=== PATIENT | male | born 1955 | race Caucasian/White ===

== ENCOUNTER 2018-03-23 05:43 | Day surgery (SDC) | payer MEDICAID ==
[~2018-03-23] VITALS: Ht 170.2 cm; Wt 53.0 kg
[2018-03-23] MEDS ORDERED: LIDOCAINE 4% 50 ML SOLUTION TP ONE (05:44)
[2018-03-23] MEDS ORDERED: LIDOCAINE 2% 30 ML JELLY TP ONE (05:44)
[2018-03-23] MEDS ORDERED: ALBUTEROL SULFATE 2.5 MG/0.5 ML NEB SOLUTION NEB ONE (05:44)
[2018-03-23] MEDS ORDERED: BENZOCAINE 20% 50 MCG/SPRAY 57 GM TP ONE (05:44)
[2018-03-23] MEDS ORDERED: SODIUM CHLORIDE 0.9% 1,000 ML IV ONE ×2 (06:06→07:00)
[2018-03-23] MEDS ORDERED: FLUT1AER5 PO (07:11)
[2018-03-23] MEDS ORDERED: OMEP20 PO (07:11)
[2018-03-23] MEDS ORDERED: IPRA3AMP23 IH (07:11)
[2018-03-23] MEDS ORDERED: MONT10TA21 PO (07:11)
[2018-03-23] MEDS ORDERED: PRED10 PO (07:11)
[2018-03-23] MEDS ORDERED: FentaNYL CITRATE-PF 100 MCG/2 ML VIAL ONE (07:51)
[2018-03-23] MEDS ORDERED: MIDAZOLAM HCL 2 MG/2 ML VIAL ONE (07:51)
[2018-03-23] MEDS ORDERED: MethylPREDNISolone SOD SUCC 125 MG/2 ML VIAL IVP ONE (08:30)
[2018-03-23] MEDS ORDERED: MethylPREDNISolone SOD SUCC 125 MG/2 ML VIAL ONE (08:34)
[2018-03-23] MEDS ORDERED: OXYGEN THERAPY IH SCH (20:00)
== END 2018-03-23 10:20 | disposition home or self-care (01) ==
LOC: SURGERY 05:43
PROVIDERS: ATTEND Internal Medicine Critical Care Medicine
DX: J38.4 Edema of larynx (principal); B37.0 Candidal stomatitis; J98.09 Other diseases of bronchus, not elsewhere classified; J98.8 Other specified respiratory disorders; F17.210 Nicotine dependence, cigarettes, uncomplicated; J45.998 Other asthma; Z86.11 Personal history of tuberculosis; Z79.899 Other long term (current) drug therapy
CPT/HCPCS: 31623; 31624; 71045; 87015; 87070; 87205; 87206; 87220; 88108; 88312; 93005; J2250; J2930; J3010; J7030